=== PATIENT | male | born 1955 ===

== ENCOUNTER 2016-12-02 22:36 | Observation (INO) | payer SELFPAY ==
[2016-12-02 22:41] VITALS: BP 130/75; PULSE 77; RESP 16; TEMP 98.1; O2SAT 97
[2016-12-02 23:19] LABS: BASO % 0.7 % (0.0-2.0); EOS # 0.1 K/uL (0.0-0.7); EOS % 1.9 % (0.0-4.0); LYMPH # 1.2 K/uL (1.0-4.3); LYMPH % 20.3 % (20.0-40.0); MEAN CELL VOLUME 102.7 fl (80.0-94.0); MEAN CORPUSCULAR HEMOGLOBIN 34.6 pg (27.0-31.0); MEAN CORPUSCULAR HGB CONC 33.7 g/dL (33.0-37.0); MEAN PLATELET VOLUME 8.4 fl (7.2-11.7); MONO % 16.2 % (0.0-10.0); NEUT # 3.6 K/uL (1.8-7.0); NEUT % 60.9 % (50.0-75.0); NRBC % 0.1 % (0.0-0.0); WHITE BLOOD COUNT 5.9 K/uL (4.8-10.8)
--- NOTE | 2016-12-02 23:25 | ED PDOC ---
HPI: Psych/Substance Abuse Time Seen by Provider: 12/02/16 22:43 Chief Complaint (Nursing): Alcohol Ingestion Chief Complaint (Provider): Alcohol Ingestion History Per: Patient History/Exam Limitations: intoxication (ETOH) Onset/Duration Of Symptoms: Mins (prior to arrival) Current Symptoms Are (Timing): Still Present Additional Complaint(s): Mook Francisco is a 61 year old male who presents to the emergency department for evaluation of alcohol intoxication prior to arrival. Denied any trauma, drug use , suicidal or homicidal ideation. Patient stated he had 24 beers and a couple pints of vodka in 24 hours today. PMD: none provided Past Medical History Reviewed: Historical Data, Nursing Documentation, Vital Signs Vital Signs: Last Vital Signs Temp 98.1 F 12/02/16 22:39 Pulse 77 12/02/16 22:39 Resp 16 12/02/16 22:39 BP 130/75 12/02/16 22:39 Pulse Ox 97 12/02/16 22:39 - Family History Family History: States: Unknown Family Hx - Social History Alcohol: > 2 Drinks/Day Drugs: Denies - Allergies Allergies/Adverse Reactions: Allergies Allergy/AdvReac Type Severity Reaction Status Date / Time No Known Allergies Allergy Verified 12/02/16 22:39 Review of Systems ROS Statement: Except As Marked, All Systems Reviewed And Found Negative Review Of Systems: ROS cannot be obtained secondary to pt's inabilty to answer questions. (ETOH intoxication) Constitutional: Negative for: Other (trauma) Psych: Negative for: Suicidal ideation (or homicidal ideation) Physical Exam - Reviewed Nursing Documentation Reviewed: Yes Vital Signs Reviewed: Yes - Physical Exam Appears: Positive for: Well, Non-toxic, No Acute Distress Head Exam: Positive for: ATRAUMATIC, NORMAL INSPECTION, NORMOCEPHALIC Cardiovascular/Chest: Positive for: Regular Rate, Rhythm. Negative for: Chest Non Tender Respiratory: Positive for: Normal Breath Sounds. Negative for: Crackles, Rales , Rhonchi, Wheezing, Respiratory Distress Gastrointestinal/Abdominal: Positive for: Normal Exam, Bowel Sounds, Soft. Negative for: Tenderness Neurologic/Psych: Positive for: Alert - Laboratory Results Result Diagrams: 12/02/16 23:00 12/02/16 23:00 - ECG O2 Sat by Pulse Oximetry: 97 (RA) Pulse Ox Interpretation: Normal Medical Decision Making Medical Decision Making: Initial Impression: ETOH intoxication Initial Plan: * Acetaminophen * Alcohol serum * BMP * Drug screen, urine * Salicylate * CBC * Urinalysis * Admit to hospital Scribe Attestation: Documented by Zeenat Swift, acting as a scribe for Abdi Mora MD. Provider Scribe Attestation: All medical record entries made by theSonnywere at my direction and personally dictated by me. I have reviewed the chart and agree that the record accurately reflects my personal performance of the history, physical exam, medical decision making, and the department course for this patient. I have also personally directed, reviewed, and agree with the discharge instructions and disposition. ED OBSERVATION Date of observation admission: 12/02/16 Time of observation admission: 23:08 - Observation admission statement Patient is being placed in observation because:: ETOH intoxication - Goals of Observation Goals of observation are:: clinical sobriety - Progress Note Progress Note: Time: 0030 --Patient is resting comfortably with stable vital signs. Time: 0200 --Patient continues to rest comfortably with stable vitals. Time: 0330 --Patient is resting comfortably with stable vitals. Time: 0500 --Patient is resting comfortably with stable vitals. 12/03/16 0600 --Patient now awake and alert with steady gait. Ambulating steadily. Will d/c home. Disposition - Clinical Impression Clinical Impression: Alcohol abuse - Disposition Disposition: Routine/Home Disposition Time: 06:00 Condition: STABLE
[2016-12-02 23:28] LABS: BLOOD UREA NITROGEN 12 mg/dl (9-20); CALCIUM 8.8 mg/dL (8.4-10.2); CARBON DIOXIDE 22 mmol/L (22-30); CHLORIDE 102 mmol/L (98-107); GFR AFRICAN-AMERICAN > 60; GLUCOSE,RANDOM 112 mg/dL (75-110); POTASSIUM 4.1 MMOL/L (3.6-5.0); SODIUM 137 mmol/l (132-148)
[2016-12-02 23:40] LABS: ALCOHOL SERUM 361 mg/dl (0-10)
[2016-12-03 03:42] LABS: URINE BILIRUBIN NEGATIVE (NEGATIVE); URINE BLOOD NEGATIVE (NEGATIVE); URINE COLOR COLORLESS (YELLOW); URINE GLUCOSE (UA) NEG (Normal); URINE KETONE NEGATIVE (NEGATIVE); URINE LEUKOCYTE ESTERASE NEG Leu/uL (Negative); URINE PROTEIN NEGATIVE (NEGATIVE); URINE UROBILINOGEN 0.2-1.0 mg/dL (0.2-1.0)
[2016-12-03 03:55] LABS: RBC URINE 1 /hpf (0-3); WBC URINE 1 /hpf (0-5)
== END 2016-12-03 06:14 | disposition home or self-care (01) ==
LOC: H.ER 22:36 → H.EROBSV 23:08
PROVIDERS: ADMIT Emergency Medicine; ATTEND Emergency Medicine
DX: F10.129 Alcohol abuse with intoxication, unspecified (principal); Y90.8 Blood alcohol level of 240 mg/100 ml or more
CPT/HCPCS: 80048; 81003; 82948; 85025; 99282; G0378; G0480